=== PATIENT | male | born 2000 | race Caucasian/White ===

== ENCOUNTER 2021-08-27 03:45 | Emergency (ER) | payer OTHER ==
[~2021-08-27] VITALS: Ht 193 cm; Wt 99.8 kg
[2021-08-27 03:45] VITALS: BP 149/89
--- NOTE | 2021-08-27 03:45 | NUR ---
TO BED AMBULATORY, BIBA WITH C/O N/V FROM [facility]
[2021-08-27] MEDS ORDERED: METOCLOPRAMIDE 10 MG/2 ML INJ VIAL IVP ONE (03:50)
[2021-08-27] MEDS ORDERED: DICYCLOMINE 10 MG CAP PO ONE (03:50)
[2021-08-27] MEDS ORDERED: ALUMINUM HYD/MAG/SIMETHICONE 30 ML UDC PO ONE (03:50)
[2021-08-27] MEDS ORDERED: FAMOTIDINE 20 MG/2 ML VIAL IVP ONE (03:50)
--- NOTE | 2021-08-27 04:05 | NUR ---
DANA UREÑA [phone] MOTHER REQUESTING UPDATE
[2021-08-27 04:23] LABS: BASOPHILS # (AUTO) 0.4 K/uL (0.00-0.22); BASOPHILS % (AUTO) 2.4 % (0.0-2.0); EOSINOPHILS # (AUTO) 0.1 K/uL (0-0.4); EOSINOPHILS % (AUTO) 0.9 % (0.0-4.0); HEMATOCRIT 49.8 % (36-52); HEMOGLOBIN 17.3 g/dL (12.0-18.0); LYMPHOCYTES # (AUTO) 0.5 K/uL (2.0-11.5); LYMPHOCYTES % (AUTO) 3.6 % (20.5-51.1); MEAN CORPUSCULAR HEMOGLOBIN 30 pg (27-31); MEAN CORPUSCULAR HGB CONC 35 g/dL (33-37); MEAN CORPUSCULAR VOLUME 86.1 fL (80-94); MONOCYTES # (AUTO) 0.6 K/uL (0.8-1.0); MONOCYTES % (AUTO) 3.7 % (1.7-9.3); NEUTROPHILS # (AUTO) 13.4 K/uL (1.8-7.7); NEUTROPHILS % (AUTO) 89.4 % (42.2-75.2); PLATELET COUNT (AUTO) 198 K/uL (140-450); RED BLOOD CELL COUNT(AUTO) 5.79 MIL/uL (4.20-6.10); RED CELL DISTRIBUTION WIDTH 13.6 % (11.6-13.7)
[2021-08-27 04:57] LABS: ALBUMIN 4.6 g/dL (3.4-5.0); ANION GAP 14.1 (8-16); CARBON DIOXIDE 27.7 mmol/L (21-32); CREATININE 1.2 mg/dL (0.6-1.3); POTASSIUM 3.8 mmol/L (3.5-5.1)
[2021-08-27] MEDS ORDERED: NACL 0.9% 1,000 ML IV ONE (05:15)
--- NOTE | 2021-08-27 05:15 | NUR ---
JORGE ALBERTO AND INFLUENZA A&B COLLECTED AND SENT TO LABORATORY.
[2021-08-27] MEDS ORDERED: MAG355OR2 PO (05:54)
[2021-08-27] MEDS ORDERED: ONDA-188 SL (05:54)
[2021-08-27] MEDS ORDERED: BEN10 PO (05:54)
--- NOTE | 2021-08-27 06:19 | NUR ---
PATIENT CLEARED FOR DC WITH DR. YANCEY, INSTRUCTIONS REINFORCED TO PATIENT. IV LINE DISCONTINUED, VS CHECKED AND STABLE ON DC.
[2021-08-27 06:43] VITALS: BP 146/86
--- NOTE | 2021-08-28 08:56 | NUR ---
LATE ENTRY- IV NORMAL SALINE DISCONTINUED AT 0619.
== END 2021-08-27 06:14 | disposition home or self-care (01) ==
LOC: MED 03:45
DX: B34.9 Viral infection, unspecified (principal); Z20.822 Contact with and (suspected) exposure to COVID-19
CPT/HCPCS: 36415; 80053; 83690; 85025; 87426; 87804; 96361; 96374; 96375; 99284; J2765; J3490; J7030